=== PATIENT | female | born 1945 | race Caucasian/White ===

== ENCOUNTER → 2019-03-16 | Outpatient (CLI) | payer MEDICARE, BC, OTHER ==
[~2019-03-16] MED LIST: ALLOPURINOL 10100 M1 PO; ASPIRIN EC81 M1 PO; CALCIUM 500 +1 EAC5 PO; COZAAR 50 MG TA50 M2 PO; DAILY MULTIVIT1 EAC4 PO; DYAZIDE 37.5-21 EACH PO; GLIPIZIDE ER10 MG PO; GLUCOPHAGE XR500 MG PO; GLUCOTROL5 MG PO; KLOR-CON 10 ER10 MEQ PO; LIPITOR20 MG PO; LOPRESSOR25 PO; NITROGLYCERIN0.4 MG SL; PIOGLITAZONE15 MG PO; PLAVIX 75 MG TA75 MG PO; TYLENOL325 MG PO; ZANTAC 150MG T150 MG PO
--- NOTE | 2019-03-16 14:13 | CARDNUC ---
[place] [address] CARDIAC NUCLEAR IMAGING REPORT Name: MAULIK KRUSE Room: [facility]#: [id number] Admission: 03/16/19 Attend Phys: Hira Felton MD Discharge: Date of : 41 Date of Service: 03/16/19 1413 Report #: [id number] THIS REPORT FOR: //name// APPROVED REPORT Imaging Protocol: Rest Tc-99m/Stress Tc-99m 1 day Study performed: 03/16/2019 08:00:00 NM Tech:THAO Frost BMI: 0 Resting Data Rest SPECT myocardial perfusion imaging was performed in supine position 30 minutes following the intravenous injection of 9.9 mCi of Tc-99m Sestamibi. Time of rest injection: 809 Date: 03/16/2019 The images were gated to evaluate regional wall motion and calculate left ventricular ejection fraction. Administration Route: IV Pharmacologic Stress Pharmacologic stress test was performed by injecting Regadenoson 0.4 mg IV push over 10-15 seconds immediately followed by the intravenous injection of 33.6 mCi of Tc-99m Sestamibi. Time of stress injection: 944 Date: 03/16/2019 Administration Route: IV Gated Stress SPECT was performed 40 minutes after stress injection. The images were gated to evaluate regional wall motion and calculate left ventricular ejection fraction. Prone imaging was performed. Stress Test Details HR Max Heart Rate (APMHR): 144 bpm Target HR (85% APMHR): 122 bpm BP ECG Resting ECG: Sinus Tachycardia Stress ECG: Sinus Tachycardia ST Change: None Arrhythmia: None Recovery ECG: [place] [address] CARDIAC NUCLEAR IMAGING REPORT Name: AIXAMAULIK CHICHO Room: [facility]#: [id number] Admission: 03/16/19 Attend Phys: Hira Felton MD Discharge: Date of : 41 Date of Service: 03/16/19 1413 Report #: [id number] Change: None Recovery Arrhythmia: None Clinical The patient tolerated Lexiscan infusion without significant symptoms. Stress ECG Conclusion The baseline 12-lead EKG shows sinus tachycardia without significant ST or T wave abnormality. EKGs obtained during and post Lexiscan infusion show sinus tachycardia with no significant ST or T wave changes when compared to baseline. There were no stress-induced arrhythmias. Study Quality Study: Good Artifact: No artifact Study Data At rest, the left ventricular ejection fraction was 83%.. Post stress, the left ventricular ejection was 83%.. TID = 0.89. Perfusion Normal left ventricular perfusion. Wall Motion Normal left ventricular wall motion. Nuclear Conclusion ECG Findings: negative for ischemia Clinical Findings: negative for ischemia Nuclear Findings: negative for ischemia Exercise Capacity: not assessed Left Ventricular Function: normal Risk Study: low Myocardial perfusion images show no defect to suggest infarct or ischemia. Left ventricular systolic function was normal on gated studies. This is a low risk study. <Conclusion> The baseline 12-lead EKG shows sinus tachycardia without significant ST or T wave abnormality. EKGs obtained during and post Lexiscan infusion show sinus tachycardia with no significant ST [place] [address] CARDIAC NUCLEAR IMAGING REPORT Name: AIXAMAULIK Room: [facility]#: [id number] Admission: 03/16/19 Attend Phys: Hira Felton MD Discharge: Date of : 41 Date of Service: 03/16/191412 Report #: [id number] changes when compared to baseline. There were no stress-induced arrhythmias. <ELECTRONICALLY SIGNED> By: Jesus Fitzgerald MD, FACC 03/16/19 141 12 12 Jesus Fitzgerald MD, FACC /INF
== END ==
LOC: M.NUC 02-21 08:52
DX: R07.9 Chest pain, unspecified (principal); Z88.2 Allergy status to sulfonamides; Z88.8 Allergy status to other drugs, medicaments and biological substances

== ENCOUNTER → 2020-08-01 | Outpatient (CLI) | payer MEDICARE, BC | LOC: M.ULTRA 10:19 | PROVIDERS: ATTEND Internal Medicine Cardiovascular Disease | DX: I65.23 Occlusion and stenosis of bilateral carotid arteries (principal) ==

== ENCOUNTER → 2021-11-20 | Outpatient (CLI) | payer MEDICARE, BC ==
--- NOTE | 2021-11-20 16:25 | CARDNUC ---
[place] [address] CARDIAC NUCLEAR IMAGING REPORT Name: MAULIK KRUSE Room: [facility]#: [id number] Admission: 11/20/21 Attend Phys: Jesus Fitzgerald, Discharge: Date of : 41 Date of Service: 11/20/21 1625 Report #: [id number] THIS REPORT FOR: cc: Umm Osei MD, Ghazal A. MD Liston,Jesus Bateman MD [facility] ~ APPROVED REPORT Study performed: 11/20/2021 08:54:30 Exam: Nuclear Stress Test Indication: Chest pain Patient Location: Out-Patient Stress Tech: DENNY MORAN Stress Nurse: Nettie Banks RN NM Tech:TERRY FrostB Ht: 5 ft 7 in Wt: 203 lbs BSA: 2.04 m2 BMI: 31.79 Medical History Medical History: CAD s/p stent, HTN, Hyperlipidemia, Diabetes Medications: ATORVASTATIN, CLOPIDOGREL, FUROSEMIDE, ISOSORBIDE, DLOR-CON, METOPROLOL, NTG, TELMISARTAN, MAXIDE Allergies: SULFITES, LIPITOR Cardiac Risk Factors: Age, DM, FHX of CAD, HTN, Hyperlipidemia, Tobacco History (Former) Previous Cardiac Procedures: PCI Exercise History: Indeterminate Meds Held (24 hrs): ISOSORBIDE, METOPROLOL Stress Test Details Stress Test: Pharmacologic stress testing performed using 0.4 mg of regadenoson per 5 mL given IV over 10 seconds. Reason for pharmacologic stress test: physical limitation. HR Resting HR: 101 bpm Max Heart Rate (APMHR): 142 bpm Max HR Achieved: 150 bpm Target HR (85% APMHR): 120 bpm % of APMHR: 105 Recovery HR: 122 [place] [address] CARDIAC NUCLEAR IMAGING REPORT Name: MAULIK KRUSE Room: [facility]#: [id number] Admission: 11/20/21 Attend Phys: Jesus Fitzgerald, Discharge: Date of : 41 Date of Service: 11/20/21 1625 Report #: [id number] Resting BP: 194/81 mmHg Max BP: 157/78 mmHg ECG Resting ECG: Sinus Tachycardia Stress ECG: Sinus Tachycardia ST Change: None Arrhythmia: None Recovery ECG: Sinus Tachycardia Recovery ST Change: None Recovery Arrhythmia: None Clinical Reason for Termination: Completed protocol The patient tolerated walking Lexiscan protocol without significant cardiac symptoms. Stress ECG Conclusion The baseline twelve-lead EKG shows sinus tachycardia without significant ST segment abnormality. EKG obtained during and post walking Lexiscan protocol show sinus tachycardia with no significant ST segment or T wave changes when compared to baseline. There were no stress-induced arrhythmias. NM EXAM: Myocardial Perfusion REST/STRESS Imaging Protocol: Rest Tc-99m/Stress Tc-99m 1 day Resting Data Rest SPECT myocardial perfusion imaging was performed in supine position 30 minutes following the intravenous injection of 11.4 mCi of Tc-99m Sestamibi. Time of rest injection: 0755 Date: 11/20/2021 The images were gated to evaluate regional wall motion and calculate left ventricular ejection fraction. Administration Route: IV Pharmacologic Stress Pharmacologic stress test was performed by injecting Regadenoson 0.4 mg IV push followed by the intravenous injection of 35.5 mCi of Tc-99m Sestamibi. Time of stress injection: 0900 Date: 11/20/2021 Administration Route: IV Gated Stress SPECT was performed 40 minutes after stress injection. The images were gated to evaluate regional [place] [address] CARDIAC NUCLEAR IMAGING REPORT Name: AIXAMAULIK CHICHO Room: [facility]#: [id number] Admission: 11/20/21 Attend Phys: Jesus Fitzgerald, Discharge: Date of : 41 Date of Service: 11/20/21 1625 Report #: [id number] left ventricular ejection fraction. Prone imaging was performed. Study Quality Study: Good Artifact: No artifact Study Data At rest, the left ventricular ejection fraction was 76%.. Post stress, the left ventricular ejection was 78%.. TID = 1.04. Perfusion There is a focal moderate intensity reversible defect in the distal inferior wall. No other defects are identified. Wall Motion Normal left ventricular wall motion. Nuclear Conclusion ECG Findings: negative for ischemia Clinical Findings: negative for ischemia Nuclear Findings: positive for ischemia Exercise Capacity: not assessed Left Ventricular Function: normal Risk Study: moderate Perfusion images show a focal moderate intensity reversible defect in the distal inferior wall. No other significant fixed or reversible defects are identified. Global LV systolic function appears normal. This is a moderate risk study. <Conclusion> The baseline twelve-lead EKG shows sinus tachycardia without significant ST segment abnormality. EKG obtained during and post walking Lexiscan protocol show sinus tachycardia with no significant ST segment or T wave changes when compared to baseline. There were no stress-induced arrhythmias. <ELECTRONICALLY SIGNED> By: Jesus Fitzgerald MD, FACC 11/20/21 1625 1625 1625 Jesus Fitzgerald MD, FACC /INF
== END ==
LOC: M.NUC 11-10 13:46
PROVIDERS: ATTEND Internal Medicine Cardiovascular Disease
DX: I25.89 Other forms of chronic ischemic heart disease (principal); I25.10 Atherosclerotic heart disease of native coronary artery without angina pectoris